=== PATIENT | female | born 1945 | race Caucasian/White ===

== ENCOUNTER → 2018-05-20 13:30 | Outpatient (CLI) | payer MEDICARE, OTHER, SELFPAY ==
--- NOTE | 2018-05-20 | DI.US.S_ITS ---
LIMITED ULTRASOUND OF LEFT BREAST: 05/20/2018 CLINICAL: Focal left breast pain. Comparison is made to exams dated: 05/20/2018 mammogram, 04/15/2017 mammogram, 01/17/2016 mammogram, 12/10/2014 mammogram, and 09/11/2013 mammogram - [facility]. Real-time ultrasound of the left breast 1 o'clock region was performed on the area of interest. IMPRESSION: NEGATIVE There is no sonographic evidence of malignancy. There is no abnormality seen in the left breast to correspond with the pain at 1 o'clock, however, clinical followup is recommended. A 1 year screening mammogram is recommended. This exam was interpreted at Station ID: [id number]. Electronically Signed By: Nitin clark/leandra:05/20/2018 16:57:10 letter sent: Clinical Evaluation Ultrasound BI-RADS: 1 Negative
--- NOTE | 2018-05-20 | DI.MG.S_ITS ---
BILATERAL DIGITAL DIAGNOSTIC MAMMOGRAM 3D/2D WITH AUGMENTATION: 05/20/2018 CLINICAL: Left breast tenderness. Comparison is made to exams dated: 04/15/2017 mammogram, 01/17/2016 mammogram, and 12/10/2014 mammogram - [facility]. The tissue of both breasts is predominantly fatty. Right breast implant is intact. Left breast implant is stable. No significant masses, calcifications, or other findings are seen in either breast. There has been no significant interval change. IMPRESSION: INCOMPLETE: NEEDS ADDITIONAL IMAGING EVALUATION There is no abnormality seen in the left breast to correspond with the pain in the upper outer quadrant, however, ultrasound is recommended. This exam was interpreted at Station ID: [id number]. NOTE: For mammograms, a report in lay terms will be sent to the patient. Approximately 15% of breast malignancies will not be visualized mammographically. In the management of a palpable breast mass, a negative mammogram must not discourage biopsy of a clinically suspicious lesion. Electronically Signed By: Nitin clark/leandra:05/20/2018 14:44:59 letter sent: Need Ultrasound ACR BI-RADS Category 0: Incomplete [id number]
== END ==
PROVIDERS: PCP Family Medicine; Visit Provider Family Medicine
DX: R92.8 Other abnormal and inconclusive findings on diagnostic imaging of breast (principal); N64.4 Mastodynia; M81.0 Age-related osteoporosis without current pathological fracture; Z78.0 Asymptomatic menopausal state; Z98.82 Breast implant status; Z90.722 Acquired absence of ovaries, bilateral
CPT/HCPCS: 76642; 77066; 77080; G0279